=== PATIENT | female | born 1985 | race African-American/Black ===

== ENCOUNTER 2021-12-14 21:33 | Emergency (ER) | payer SELFPAY ==
[~2021-12-14] VITALS: Ht 157.5 cm; Wt 72.6 kg
[2021-12-14 22:00] VITALS: BP_SYST 145
--- NOTE | 2021-12-14 22:00 | NUR ---
Patient male who presents emergency room with dental pain. Patient has a cracked left frontal incisor. Patient has not been able to see her dentist. Patient plans to see her dentist next week. The pain radiates into her maxillary sinus. Pt states pain scale is 6/10. She describes the pain as sharp. Patient states that part of her tooth broke about a week ago. She has no fever or chills. She denies having a headache. She has no nausea at this time. Patient breathing easy, not in distress. Ambulatory with steady gait.
--- NOTE | 2021-12-14 22:05 | NUR ---
ER in triage examining patient.
[2021-12-14] MEDS ORDERED: IBUPROFEN 600 MG TABLET PO ONE (22:30)
[2021-12-14] MEDS ORDERED: NAPR-1172 PO (22:31)
[2021-12-14] MEDS ORDERED: PENI250T2 PO (22:31)
[2021-12-14 22:57] VITALS: BP_SYST 144
--- NOTE | 2021-12-14 22:57 | NUR ---
Patient given written and verbal discharge instructions and verbalizes understanding. ER MD discussed with patient the care provided. Patient in stable condition. ID arm band removed. Rx of Penicillin V Potassium and naproxen sent to phrmacy of choice. Patient educated on pain management and to follow up with PMD. Pain Scale 6/10. Opportunity for questions provided and answered.
== END 2021-12-14 22:57 | disposition home or self-care (01) ==
LOC: SED 21:33
DX: K08.89 Other specified disorders of teeth and supporting structures (principal); Z79.899 Other long term (current) drug therapy
CPT/HCPCS: 99283